=== PATIENT | female | born 1945 | race Caucasian/White ===

== ENCOUNTER 2016-05-26 08:36 | Outpatient (CLI) | payer MEDICARE ==
[2016-05-26 09:02] LABS: Hemoglobin 7.1 g/dL (12.0-16.0); Mean Corpuscular HGB CONC 30.7 g/dL (32.0-36.0); Mean Corpuscular Hemoglobin 25.5 pg (27.0-31.0); Mean Platelet Volume 9.3 fL (7.4-10.4); Platelet Count 63 thou/uL (130-400); RBC Distribution Width 17.5 % (11.5-14.5); Red Blood Cell (RBC) Count 2.81 mill/uL (4.20-5.40); White Blood Cell (WBC) Count 3.7 thou/uL (4.8-10.8)
[2016-05-26 09:16] LABS: ALT (SGPT) 15 U/L (0-55); AST (SGOT) 20 U/L (5-34); Albumin 2.9 g/dL (3.4-4.8); Alkaline Phosphatase 85 U/L (40-150); Anion Gap 14 mmol/L (10-20); BUN (Urea Nitrogen) 16 mg/dL (9.8-20.1); Bilirubin, Total 1.2 mg/dL (0.2-1.2); Calc. Creatinine Clearance 0 mL/min (70-130); Calcium 8.9 mg/dL (7.8-10.44); Carbon Dioxide 21 mmol/L (23-31); Chloride 109 mmol/L (98-107); Estimated GFR-MDRD 27; Globulin 2.2 g/dL (2.4-3.5); Glucose 122 mg/dL (83-110); Potassium 3.9 mmol/L (3.5-5.1); Protein, Total 5.1 g/dL (5.8-8.1); Sodium 140 mmol/L (136-145)
== END 2016-05-26 08:37 | disposition home or self-care (01) ==
LOC: MADLAB 08:36
PROVIDERS: ATTEND Physician Assistant Medical
DX: K74.60 Unspecified cirrhosis of liver (principal)
CPT/HCPCS: 36415; 80053; 82105; 85027

== ENCOUNTER 2016-06-10 14:01 | Outpatient (CLI) | payer MEDICARE ==
[2016-06-10 14:38] LABS: INR-International Normal Ratio 1.2; Prothrombin Time 15.9 SEC (12.0-14.7)
[2016-06-10 15:00] LABS: ALT (SGPT) 21 U/L (0-55); AST (SGOT) 61 U/L (5-34); Albumin 2.7 g/dL (3.4-4.8); Alkaline Phosphatase 85 U/L (40-150); Bilirubin, Direct 0.5 mg/dL (0.1-0.3); Bilirubin, Total 1.3 mg/dL (0.2-1.2); Protein, Total 4.8 g/dL (5.8-8.1)
[2016-06-10 15:09] LABS: Hemoglobin 9.2 g/dL (12.0-16.0); Mean Corpuscular HGB CONC 31.3 g/dL (32.0-36.0); Mean Corpuscular Hemoglobin 26.8 pg (27.0-31.0); Mean Corpuscular Volume 85.4 fl (81.0-99.0); Mean Platelet Volume 11.3 fL (7.4-10.4); Platelet Count 64 thou/uL (130-400); Red Blood Cell (RBC) Count 3.45 mill/uL (4.20-5.40); White Blood Cell (WBC) Count 3.1 thou/uL (4.8-10.8)
== END 2016-06-10 14:02 | disposition home or self-care (01) ==
LOC: MADLAB 14:01
PROVIDERS: ATTEND Internal Medicine Gastroenterology
DX: D64.9 Anemia, unspecified (principal); K74.60 Unspecified cirrhosis of liver
CPT/HCPCS: 36415; 80076; 85027; 85610

== ENCOUNTER 2016-09-19 08:30 | Outpatient (CLI) | payer MEDICARE ==
[2016-09-19 08:53] LABS: Hemoglobin A1c 7.7 % (4.0-6.0)
[2016-09-19 09:02] LABS: ALT (SGPT) 14 U/L (8-55); AST (SGOT) 22 U/L (5-34); Albumin 2.8 g/dL (3.4-4.8); Alkaline Phosphatase 92 U/L (40-150); Anion Gap 11 mmol/L (10-20); BUN (Urea Nitrogen) 14 mg/dL (9.8-20.1); Calc. Creatinine Clearance 0 mL/min (70-130); Calcium 8.5 mg/dL (7.8-10.44); Carbon Dioxide 24 mmol/L (23-31); Chloride 110 mmol/L (98-107); Estimated GFR-MDRD 28; Globulin 2.4 g/dL (2.4-3.5); Glucose 91 mg/dL (83-110); Protein, Total 5.2 g/dL (6.0-8.3); Sodium 141 mmol/L (136-145)
[2016-09-19 09:07] LABS: Hemoglobin 8.4 g/dL (12.0-16.0); Mean Corpuscular HGB CONC 31.7 g/dL (32.0-36.0); Mean Corpuscular Hemoglobin 28.5 pg (27.0-31.0); Mean Corpuscular Volume 89.8 fl (81.0-99.0); Mean Platelet Volume 9.4 fL (7.4-10.4); Platelet Count 65 thou/uL (130-400); RBC Distribution Width 14.8 % (11.5-14.5); Red Blood Cell (RBC) Count 2.97 mill/uL (4.20-5.40)
[2016-09-19 09:11] LABS: White Blood Cell (WBC) Count 2.5 thou/uL (4.8-10.8)
== END 2016-09-19 08:31 | disposition home or self-care (01) ==
LOC: MADLAB 08:30
PROVIDERS: ATTEND Internal Medicine Gastroenterology
DX: E11.9 Type 2 diabetes mellitus without complications (principal); K74.60 Unspecified cirrhosis of liver
CPT/HCPCS: 36415; 80053; 83036; 85027

== ENCOUNTER 2016-11-12 08:38 | Outpatient (CLI) | payer MEDICARE ==
[2016-11-12 10:02] LABS: Anion Gap 10 mmol/L (10-20); BUN (Urea Nitrogen) 16 mg/dL (9.8-20.1); Calc. Creatinine Clearance 0 mL/min (70-130); Calcium 8.5 mg/dL (7.8-10.44); Carbon Dioxide 20 mmol/L (23-31); Chloride 112 mmol/L (98-107); Estimated GFR-MDRD 26; Glucose 105 mg/dL (83-110); Potassium 4.4 mmol/L (3.5-5.1); Sodium 138 mmol/L (136-145)
[2016-11-12 11:39] LABS: Bilirubin Negative (Negative); Clarity Hazy (Clear); Glucose, Urine (Dipstick) Negative (Negative); Leukocyte Negative (Negative); Nitrite Negative (Negative); Protein, Urine (Dipstick) Negative (Neg-Trace); Specific Gravity, Urine 1.025 (1.005-1.030); Urobilinogen 0.2 mg/dL (0.2-1.0)
[2016-11-12 11:40] LABS: Bacteria/HPF 1+ HPF (None Seen); Blood, Urine Negative (Negative); RBC/HPF 0-3 HPF (0-3); WBC/HPF 0-3 HPF (0-3)
== END 2016-11-12 08:39 | disposition home or self-care (01) ==
LOC: MADLAB 08:38
PROVIDERS: ATTEND Internal Medicine Nephrology
DX: N18.4 Chronic kidney disease, stage 4 (severe) (principal)
CPT/HCPCS: 36415; 80048; 81001

== ENCOUNTER 2017-07-28 13:13 | Outpatient (CLI) | payer MEDICARE ==
[2017-07-28 14:36] LABS: Anion Gap 13 mmol/L (10-20); BUN (Urea Nitrogen) 20 mg/dL (9.8-20.1); Calc. Creatinine Clearance 0 mL/min (70-130); Calcium 8.5 mg/dL (7.8-10.44); Carbon Dioxide 23 mmol/L (23-31); Chloride 104 mmol/L (98-107); Estimated GFR-MDRD 23; Glucose 404 mg/dL (83-110); Potassium 4.7 mmol/L (3.5-5.1); Sodium 135 mmol/L (136-145)
== END 2017-07-28 13:14 | disposition home or self-care (01) ==
LOC: MADLAB 13:13
PROVIDERS: ATTEND Internal Medicine Nephrology
DX: N18.3 Chronic kidney disease, stage 3 (moderate) (principal)
CPT/HCPCS: 36415; 80048

== ENCOUNTER 2017-09-22 13:35 | Outpatient (CLI) | payer MEDICARE ==
[2017-09-22 14:33] LABS: Anion Gap 12 mmol/L (10-20); BUN (Urea Nitrogen) 14 mg/dL (9.8-20.1); Calc. Creatinine Clearance 0 mL/min (70-130); Calcium 8.5 mg/dL (7.8-10.44); Carbon Dioxide 20 mmol/L (23-31); Chloride 114 mmol/L (98-107); Estimated GFR-MDRD 29; Glucose 104 mg/dL (83-110); Potassium 4.5 mmol/L (3.5-5.1); Sodium 141 mmol/L (136-145)
== END 2017-09-22 13:36 | disposition home or self-care (01) ==
LOC: MADLAB 13:35
PROVIDERS: ATTEND Internal Medicine Nephrology
DX: N18.4 Chronic kidney disease, stage 4 (severe) (principal)
CPT/HCPCS: 36415; 80048

== ENCOUNTER 2017-09-26 18:13 | Emergency (ER) | payer MEDICARE ==
--- NOTE | 2017-09-26 19:27 | RAD ---
LEFT FOOT: 09/26/17 Three views. HISTORY: Injury. Enthesophyte from the plantar calcaneus. Tarsals appear intact. There is slight angulation of the neck of the fourth metatarsal and I cannot exclude fracture at the neck of the fourth metatarsal. There is evidence of acute fracture involving the proximal phalanx of the fifth toe without displacem ent. Slight angulation of the neck of the third metatarsal. The metatarsal findings may be chronic. IMPRESSION: 1. Evidence of acute fracture involving the proximal phalanx of the fifth toe. There is a chip f racture from the corner of this phalanx at the MTP joint and there is evidence of a mid shaft fractur e without displacement. 2. Slight angulation of the neck of the third and fourth metatarsals. Acute fracture at these si marylin cannot be excluded. POS: [facility]
== END 2017-09-26 19:58 | disposition home or self-care (01) ==
LOC: MADERS 18:13
DX: S92.345A Nondisplaced fracture of fourth metatarsal bone, left foot, initial encounter for closed fracture (principal); S92.512A Displaced fracture of proximal phalanx of left lesser toe(s), initial encounter for closed fracture; E11.9 Type 2 diabetes mellitus without complications; I10 Essential (primary) hypertension; W17.89XA Other fall from one level to another, initial encounter